=== PATIENT | male | born 1950 | race Caucasian/White ===

== ENCOUNTER 2020-03-11 23:03 | Outpatient (CLI) | payer MEDICARE | END 2020-03-11 23:59 | disposition critical access hospital (66) | LOC: EMS 23:03 | PROVIDERS: ATTEND Surgery | DX: R55 Syncope and collapse (principal); R46.4 Slowness and poor responsiveness; R53.1 Weakness | CPT/HCPCS: A0425; A0427 ==

== ENCOUNTER 2020-03-11 23:32 | Emergency (ER) | payer BC, MEDICARE ==
[2020-03-11] MEDS ORDERED: SODIUM CHLORIDE 0.9% 1,000 ML IV STA (23:41)
[2020-03-12 00:04] LABS: BASOPHILS % (AUTO) 0.3 %; EOSINOPHILS # (AUTO) 0.1 10^3/uL (0.0-0.7); EOSINOPHILS % (AUTO) 0.4 %; HGB - HEMOGLOBIN 13.9 g/dL (14.0-18.0); LYMPHOCYTES # (AUTO) 1.3 10^3/uL (1.5-3.5); LYMPHOCYTES % (AUTO) 10.9 %; MEAN CORPUSCULAR HEMOGLOBIN 33.1 pg (27.0-31.0); MEAN CORPUSCULAR HGB CONC 34.5 g/dL (32.0-36.0); MEAN PLATELET VOLUME 10.8 fL (7.4-11.4); MONOCYTES % (AUTO) 8.5 %; NEUTROPHILS # (AUTO) 9.2 10^3/uL (1.5-6.6); NEUTROPHILS % (AUTO) 79.5 %; PLT - PLATELET COUNT 178 10^3/uL (130-450); RED CELL DISTRIBUTION WIDTH 12.7 % (12.0-15.0); WHITE BLOOD COUNT 11.6 x10^3/uL (4.8-10.8)
[2020-03-12 00:18] LABS: ALBUMIN 3.6 g/dL (3.2-5.5); ALBUMIN/GLOBULIN RATIO 1.3 (1.0-2.2); BILIRUBIN,TOTAL 0.9 mg/dL (0.2-1.0); CALCIUM 8.2 mg/dL (8.5-10.3); CREATININE 1.3 mg/dL (0.6-1.2); TOTAL PROTEIN 6.4 g/dL (6.7-8.2)
--- NOTE | 2020-03-12 01:07 | ED Physician Documentation ---
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 He did not have a head injury or loss of consciousness associated with this. He was sitting on his deck at home this evening when he had a sudden syncopal episode. This was witnessed by his nephew. He is come to the emergency department now after receiving intravenous fluid in the field for low blood pressure and tachycardia. He was assumed to be significantly dehydrated.His blood pressure and pulse improved and normalized on arrival to the emergency department. Review of Systems Constitutional: denies: Fever Eyes: denies: Decreased vision Ears: denies: Ear pain Nose: denies: Congestion Throat: denies: Sore throat Cardiac: denies: Chest pain / pressure, Palpitations Respiratory: denies: Dyspnea, Cough GI: reports: Abdominal Pain, Diarrhea. denies: Nausea, Vomiting : denies: Dysuria, Frequency Skin: denies: Rash Musculoskeletal: denies: Neck pain, Back pain, Extremity pain Neurologic: reports: Syncope. denies: Generalized weakness, Focal weakness, Numbness, Seizure, Altered mental status, Headache, Head injury, LOC PD PAST MEDICAL HISTORY - Past Medical History Past Medical History: No - Past Surgical History Past Surgical History: No - Allergies Allergies/Adverse Reactions: Allergies Allergy/AdvReac Type Severity Reaction Status Date / Time No Known Drug Allergies Allergy Verified 03/11/20 23:39 - Social History Does the pt smoke?: No Smoking Status: Never smoker Does the pt drink ETOH?: Yes Does the pt have substance abuse?: No - Immunizations Immunizations are current?: Yes - POLST Patient has POLST: No PD ED PE NORMAL - Vitals Vital signs reviewed: Yes (Diastolic hypertension) - General General: Alert and oriented X 3, No acute distress, Well developed/nourished - HEENT HEENT: Atraumatic, PERRL, EOMI - Neck Neck: Supple, no meningeal sign, No bony TTP - Cardiac Cardiac: RRR, No murmur - Respiratory Respiratory: No respiratory distress, Clear bilaterally - Abdomen Abdomen: Normal bowel sounds, Soft, Non tender, Non distended, No organomegaly - Back Back: No CVA TTP, No spinal TTP - Derm Derm: Normal color, Warm and dry, No rash - Extremities Extremities: No deformity, No tenderness to palpate, Normal ROM s pain, No edema, No calf tenderness / cord, Other (There are abrasions to the right knee that are bandaged.) - Neuro Neuro: Alert and oriented X 3, evp marketing 2-12 intact, No motor deficit, No sensory deficit, Normal speech Eye Opening: To Voice Motor: Obeys Commands Verbal: Oriented GCS Score: 14 - Psych Psych: Normal mood, Normal affect Results - Vitals Vitals: Vital Signs - 24 hr 03/11/20 03/11/20 03/12/20 23:39 23:42 00:36 Temperature 35.7 C L Heart Rate 85 83 74 Respiratory 18 18 16 Rate Blood Pressure 125/99 H 125/99 H 114/69 O2 Saturation 93 93 97 03/12/20 02:00 Temperature Heart Rate 89 Respiratory 16 Rate Blood Pressure 110/77 O2 Saturation 95 Oxygen O2 Source Room air - EKG (time done) 2344 Rate: Rate (enter#) (80) Rhythm: NSR Other comments: Other comments (early transition) Compare to prior EKG: Old EKG unavailable Computer interpretation: Agree with computer - Labs Labs: Laboratory Tests 03/11/20 03/11/20 03/11/20 23:55 23:55 23:55 WBC 11.6 H RBC 4.20 L Hgb 13.9 L Hct 40.3 L MCV 96.0 H MCH 33.1 H MCHC 34.5 RDW 12.7 Plt Count 178 MPV 10.8 Neut # (Auto) 9.2 H Lymph # (Auto) 1.3 L [place] # (Auto) 1.0 Eos # (Auto) 0.1 Baso # (Auto) 0.0 Absolute Nucleated RBC 0.00 Nucleated RBC % 0.0 D-Dimer Sodium 140 Potassium 3.6 Chloride 106 Carbon Dioxide 25 Anion Gap 9.0 BUN 31 H Creatinine 1.3 H Estimated GFR (MDRD) 55 L Glucose 157 H Lactic Acid 1.3 Calcium 8.2 L Total Bilirubin 0.9 AST 27 ALT 22 Alkaline Phosphatase 45 Troponin I High Sens Total Protein 6.4 L Albumin 3.6 Globulin 2.8 Albumin/Globulin Ratio 1.3 Lipase 34 03/11/20 03/11/20 23:55 23:55 WBC RBC Hgb Hct MCV MCH MCHC RDW Plt Count MPV Neut # (Auto) Lymph # (Auto) [place] # (Auto) Eos # (Auto) Baso # (Auto) Absolute Nucleated RBC Nucleated RBC % D-Dimer 271.8 H Sodium Potassium Chloride Carbon Dioxide Anion Gap BUN Creatinine Estimated GFR (MDRD) Glucose Lactic Acid Calcium Total Bilirubin AST ALT Alkaline Phosphatase Troponin I High Sens 2.8 Total Protein Albumin Globulin Albumin/Globulin Ratio Lipase - Rads (name of study) CT angio chest Radiology: Prelim report reviewed (Impression: Negative for pulmonary embolus. No acute injury to the chest. Sliding hiatal hernia. Subsegmental atelectasis.), EMP read indepedently, See rad report Procedures - IVC sono (time) 2343 Bedside IVC sono: IVC measures (cm) (1.70), IVC collapsed c insp (cm) (complete), Dehydration (est <1 liter deficit) PD MEDICAL DECISION MAKING - ED course Complexity details: reviewed results, re-evaluated patient, considered differential, d/w patient, d/w family ED course: 69-year-old male with a syncopal episode today while sitting appear dehydrated in the field with tachycardia and hypotension this is improved on arrival to the emergency department with 1 L of saline. The patient is given a second liter of saline and his electrolytes were checked he does have evidence of acute kidney injury likely associated with his dehydration. His potassium was normal. On my history the patient had a syncopal episode while sitting and the patient indicated to me that he felt fine when this occurred. I felt this was odd and we checked his d-dimer which was elevated and ordered a CT angios of his chest. I was later able to get further history from the patient's who indicates that prior to the syncopal episode had walked out onto the deck and his legs were quite wobbly and he had collapsed. He then went to sit in a chair and that is when he had the syncopal episode. The patient apparently down plays his symptoms. After his second liter he feels much improved. Syncope with dehydration. No pulmonary embolism. Departure - Departure Disposition: 01 Home, Self Care Clinical Impression: Dehydration Syncope Qualifiers: Syncope type: heat syncope Encounter type: initial encounter Qualified Code(s): T67.1XXA - Heat syncope, initial encounter Condition: Stable Instructions: ED Dehydration, ED Syncope Vasovagal Follow-Up: YONI JARVIS MD [Primary Care Provider] -
[2020-03-12] MEDS ORDERED: IOVERSOL 320 100 ML VIAL IVP ONE ×2 (01:28→02:09)
[2020-03-12 03:08] VITALS: BP 112/68
--- NOTE | 2020-03-12 09:23 | CT Report ---
PROCEDURE: ANGIO CHEST W/WO INDICATIONS: syncope elevated d-dimer CONTRAST: IV CONTRAST: Optiray 320 ml: 100 PO CONTRAST: *NO PO CONTRAST TECHNIQUE: After the administration of intravenous contrast, 2 mm thick sections acquired from the pulmonary api elizabeth to the posterior costophrenic angles. 3-dimensional maximum intensity projection (MIP) coronal a nd sagittal reformats were then acquired through the thorax. For radiation dose reduction, the follow ing was used: automated exposure control, adjustment of mA and/or kV according to patient size. COMPARISON: None available. FINDINGS: Image quality: Excellent. Pulmonary arteries: Pulmonary arteries are normal in size, and demonstrate no intraluminal filling d efects to suggest central pulmonary embolism. Lungs and pleura: Mild dependent atelectasis is seen. No pleural effusions or pneumothorax. Central and peripheral airways are patent. Mediastinum: Heart size is normal, without pericardial effusion. No mediastinal or hilar adenopathy . Thoracic aorta is normal in caliber and enhancement. Esophagus is normal in caliber. There is a large hiatal hernia seen, which contains approximately one third of the stomach. Bones and chest wall: No suspicious bony lesions. Ribs and thoracic spine appear intact throughout. Age-appropriate degenerative changes are seen. There is accentuated thoracic kyphosis. The thyr oid is normal. No axillary or supraclavicular adenopathy. Abdomen: Visualized upper abdominal solid organs appear normal in the early arterial phase of enhanc ement. An accessory spleen is incidentally noted along the hilum of the primary spleen. IMPRESSION: Negative for pulmonary embolism. Incidental note is made of: Large hiatal hernia Accessory splenule Note: No significant discrepancy from the preliminary report. Reviewed by: Giorgi Good MD on 03/12/2020 8:21 AM SAMAN Approved by: Giorgi Good MD on 03/12/2020 8:21 AM SAMAN Station ID: [id number]
== END 2020-03-12 03:08 | disposition home or self-care (01) ==
LOC: EDUNIT# → ED 23:32
DX: E86.0 Dehydration (principal); N17.9 Acute kidney failure, unspecified; T67.1XXA Heat syncope, initial encounter; X30.XXXA Exposure to excessive natural heat, initial encounter; S80.211A Abrasion, right knee, initial encounter; W01.0XXA Fall on same level from slipping, tripping and stumbling without subsequent striking against object, initial encounter; Y93.01 Activity, walking, marching and hiking; Y92.512 Supermarket, store or market as the place of occurrence of the external cause; R19.7 Diarrhea, unspecified; K44.9 Diaphragmatic hernia without obstruction or gangrene
CPT/HCPCS: 36415; 71275; 80053; 83605; 83690; 84484; 85025; 85379; 93005; 96360; 99284; Q9967